=== PATIENT | male | born 1950 | race Caucasian/White ===

== ENCOUNTER 2016-07-11 12:02 | Outpatient (CLI) | payer MEDICARE ==
[2016-07-11 12:29] LABS: BASOPHILS % 0.8 (0.0-1.5); EOSINOPHILS % 4.3 % (0.0-6.8); LYMPHOCYTES # 1.8 # k/uL (0.6-4.0); MEAN CORPUSCULAR HEMOGLOBIN 29.9 pg (28.0-34.0); MONOCYTES # 0.5 # k/uL (0.0-0.9); MONOCYTES % 7.1 % (0.0-11.0); NEUTROPHILS # 4.2 # k/uL (1.4-7.7)
[2016-07-11 12:52] LABS: eGFR (African) > 60; eGFR (Non-African) > 60
[2016-07-11 18:25] VITALS: BP 185/106
== END 2016-07-11 12:03 ==
LOC: LAB 12:02
PROVIDERS: ATTEND Specialist
DX: I25.118 Atherosclerotic heart disease of native coronary artery with other forms of angina pectoris (principal); I73.9 Peripheral vascular disease, unspecified
CPT/HCPCS: 36415; 80048; 85025; 85610

== ENCOUNTER 2016-07-11 17:31 | Emergency (ER) | payer MEDICARE ==
[2016-07-11] MEDS ORDERED: ASPIRIN 81 MG CHEW TAB ONE (17:43)
[2016-07-11] MEDS ORDERED: METOPROLOL TARTRATE 5 MG/5 ML VIAL IVP ONE (17:46)
--- NOTE | 2016-07-11 17:58 | ED Physician Documentation ---
Chest Pain - HISTORIAN Historian: patient - HPI Chief Complaint: Chest Pain Onset: hours (2 hours) Timing: sudden onset Duration: persistent Last known Well Date: 07/11/16 Last Known Well Time: 15:54 Context: rest Severity: severe (9/10) Quality: tightness, sharp Chest Pain Radiation: jaw Chest Pain Signs/Symptoms: denies: nausea, vomiting Worsened By: movement Relieved By: nothing Further Comments: yes (Akin is a 65yo white male with known history or CAD. Has [address] Last cardiac cath was 3 months ago, noted to have a 100% occluded bypassed artery which was partially opend. Akin has been havng a lot of problems since that time with reccurent chest pain relieved with NTG. About 2 hours ago developed some acute pain and has taken 5 NTG with little relief. Patient has been SOB, no diaphoresis noted. Patient is scheduled to have another cardiac cath next week for further evaluation.) - ROS CONST: none - PAST HX [place] risk factors: hypertension, hyperlipidemia, cardiac disease Lung disease: none Surgeries/Procedures: cardiac bypass, cardiac cath, other (ORIC hip right) Immunizations: referred to PCP Allergies/Adverse Reactions: Allergies Allergy/AdvReac Type Severity Reaction Status Date / Time shellfish derived Allergy Verified 07/11/16 17:57 Home Medications: Ambulatory Orders Medication Instructions Recorded Nitroglycerin [Nitrostat] 07/11/16 - SOCIAL HX Smoking History: non-smoker Alcohol Use: none Drug Use: none - FAMILY HX Family HX: none - REVIEWED ASSESSMENTS Nursing Assessment Reviewed: Yes Vitals Reviewed: Yes Progress - EKG/XRAY/CT EKG: ST elevation (III, possible mild in Avf), ST depression (V2-V6) ED Results Lab/Radiology - Orders Orders: ED Orders Category Date Time Status CBC/PLATELET/DIFF Routine Lab 07/11/16 17:55 Received CMP Routine Lab 07/11/16 17:55 Received Aspirin Med 07/11/16 17:43 Discontinued 324 mg .ROUTE .STK-MED ONE Aspirin Med 07/12/16 17:47 Once 324 mg PO NOW ONE Clopidogrel Bisulfate [Plavix] Med 07/11/16 17:53 Discontinued 600 mg PO NOW ONE Metoprolol Tartrate [Toprol] Med 07/11/16 17:46 Discontinued 5 mg IVP .STK-MED ONE Metoprolol Tartrate [Toprol] Med 07/11/16 17:52 Discontinued 5 mg IVP NOW ONE Nitroglycerin [Nitroquick] Med 07/11/16 17:55 Once 0.4 mg SL NOW ONE EKG WITH COMPARISON Routine Ther 07/11/16 Ordered Chest Pain Physical Exam - EXAM General Appearance: alert, moderate distress Neck: nml inspection, no carotid bruit. No: lymphadenopathy Respiratory: no resp. distress, chest non-tender, nml breath sounds. No: wheezes, rales, rhonchi CVS: reg. rate & rhythm, no murmur, no gallop, no friction rub, pulses equal Abdomen: soft, no organomegaly, normal bowel sounds, no abdominal bruit, no distension Skin: warm/dry, normal color Extremities: non-tender, edema (trace) Neuro: oriented X3, CN's nml as tested, mood/affect nml, cognition normal Discharge Clincal Impression: Acute inferior myocardial infarction Referrals: Gary Staton MD [Primary Care Provider] - 2 Days Home Medications: Ambulatory Orders Nitroglycerin [Nitrostat] 07/11/16 Condition: Serious Disposition: 02 XFER SHT-TRM HOSP Decision to Admit: [id number] Date of Decison to Admit: 07/11/16 Decision Time: 18:03
[2016-07-11 17:59] LABS: BASOPHILS % 0.4 (0.0-1.5); EOSINOPHILS % 3.2 % (0.0-6.8); MEAN CORPUSCULAR HEMOGLOBIN 31.3 pg (28.0-34.0); MONOCYTES # 0.5 # k/uL (0.0-0.9); MONOCYTES % 7.2 % (0.0-11.0); NEUTROPHILS # 4.2 # k/uL (1.4-7.7)
[2016-07-11] MEDS: CLOPIDOGREL BISULFATE 75 MG TABLET PO ONE (17:59)
[2016-07-11] MEDS: METOPROLOL TARTRATE 5 MG/5 ML VIAL IVP ONE (17:59)
[2016-07-11] MEDS: ASPIRIN 81 MG CHEW TAB PO ONE (18:00)
[2016-07-11] MEDS: NITROGLYCERIN 0.4 MG TAB.SUBL SL ONE (18:01)
[2016-07-11 18:11] LABS: eGFR (African) > 60; eGFR (Non-African) > 60
[2016-07-11 18:25] VITALS: BP 185/106
== END 2016-07-11 18:05 | disposition short-term general hospital (02) ==
LOC: ED 17:31
DX: I21.3 ST elevation (STEMI) myocardial infarction of unspecified site (principal)
CPT/HCPCS: 80053; 85025; J3490; 96374; 96376; 99284; S1016